=== PATIENT | female | born 1965 | race Caucasian/White ===

== ENCOUNTER 2018-05-20 06:35 | Day surgery (SDC) | payer OTHER ==
[~2018-05-20] VITALS: Ht 154.9 cm; Wt 74.8 kg
[2018-05-20] MEDS: KETOROLAC 30 MG/ML VIAL ONE (08:47)
[2018-05-20] MEDS: LIDOCAINE 2% 100 MG/5 ML UJET TP ONE (08:51)
== END 2018-05-20 09:40 | disposition home or self-care (01) ==
LOC: MDS 06:35 → MMU 06:52 → MDS 09:40
PROVIDERS: ATTEND Internal Medicine Gastroenterology
DX: Z12.11 Encounter for screening for malignant neoplasm of colon (principal); K57.30 Diverticulosis of large intestine without perforation or abscess without bleeding; E66.9 Obesity, unspecified; Z68.32 Body mass index [BMI] 32.0-32.9, adult; Z79.899 Other long term (current) drug therapy; Z72.89 Other problems related to lifestyle; Z90.710 Acquired absence of both cervix and uterus; Z90.49 Acquired absence of other specified parts of digestive tract
CPT/HCPCS: 45378; J1885